=== PATIENT | female | born 1950 | race Caucasian/White ===

== ENCOUNTER 2019-04-21 19:25 | Emergency (ER) | payer MEDICARE ==
[~2019-04-21 19:25] MED LIST changes: -CITA-145 PO; -FLUC100T35 PO; -LUTE10TA3 PO; -PIOG45TA65 PO; -SULF1TAB24 PO
[2019-04-21] MEDS ORDERED: PIOG45TA65 PO (19:37)
[2019-04-21] MEDS ORDERED: CITA-145 PO (19:37)
--- NOTE | 2019-04-21 19:43 | ER Report ---
History and Physical Time Seen By MD: 19:34 Hx. of Stated Complaint: PT REPORTS NO APPETITE SINCE NOVEMBER. PT REPORT VOMITING. PT REPORT RASH OVER LOWER BODY. HPI/ROS CHIEF COMPLAINT: Heartburn and no appetite HISTORY OF PRESENT ILLNESS: This is a 68-year-old female, morbidly obese presents to the emergency department via EMS for epigastric pain and no appetite. Patient states that over the last month she has had no appetite, she is not eating, she states "nothing tastes good", is also had minimal fluid intake, she also states that over the last 7-10 days she's had severe epigastric pain. She also has a yeast infection in the groin, under the pannus and underneath both of her breasts. She has seen her primary care provider within the last month, they noted that her protein was low, no medication changes within the last one to 2 months. No fevers or chills. No nausea or vomiting. No dysuria. She denies increased shortness of breath. No back pain or headaches. REVIEW OF SYSTEMS: Constitutional: No fever, no chills. Eyes: No discharge. ENT: No sore throat. Cardiovascular: As above. Respiratory: No cough, no shortness of breath. Gastrointestinal: As above. Genitourinary: No hematuria. Musculoskeletal: No back pain. Skin: As above. Neurological: No headache. Allergies: Coded Allergies: Tetanus Vaccines and Toxoid (Verified Allergy, Unknown, SWELLED UP, 04/21/19) Home Meds Active Scripts Fluconazole (DIFLUCAN) 100 Mg Tablet, 200 MG PO QDAY, #2 TAB 0 Refills Prov:JOSE ROCHE SWITCH REPAIRER- 04/22/19 Reported Medications Citalopram Hydrobromide (CITALOPRAM HBR) 20 Mg Tablet, 20 MG PO QDAY, #5 TAB 04/21/19 Pioglitazone Hcl (PIOGLITAZONE HCL) 45 Mg Tablet, 45 MG PO QDAY 04/21/19 Discontinued Reported Medications [Herbal] No Conflict Check, 500 TAB PO QDAY 11/26/15 Metformin Hcl (METFORMIN HCL) 1,000 Mg Tablet, 1 TAB PO BID, TAB 11/26/15 Discontinued Scripts Oxycodone Hcl/Acetaminophen (PERCOCET 5-325 MG TABLET) 1 Each Tablet, 1 EACH PO Q4-6H PRN for PAIN, #20 TAB Prov:AMY DELANEYP 11/26/15 Past Medical/Surgical History The patient has a past medical and surgical history of morbidly obese, acid reflux, type II diabetes, appendectomy, cholecystectomy, hysterectomy, left shoulder surgery. Reviewed Nurses Notes: Yes Hx Smoking: No Smoking Status: Former Smoker Exposure to Second Hand Smoke?: No Hx Substance Use Disorder: No Constitutional Vital Sign - Last 24 Hours 04/21/19 04/21/19 04/21/19 04/21/19 19:25 19:30 19:31 19:40 Temp 98.7 Pulse 71 65 Resp 20 B/P (MAP) 119/70 (86) 119/57 (77) 119/70 Pulse Ox 73 93 O2 Delivery Room Air 04/21/19 04/21/19 04/21/19 04/21/19 19:55 20:00 20:10 20:25 Pulse 67 71 67 B/P (MAP) 135/59 (84) Pulse Ox 86 78 82 04/21/19 04/21/19 04/21/19 04/21/19 20:30 20:40 20:45 21:00 Pulse 64 68 70 B/P (MAP) 116/63 (80) 111/60 (77) Pulse Ox 94 96 84 04/21/19 04/21/19 04/21/19 04/21/19 21:05 21:20 21:25 23:10 Pulse 71 70 71 71 Pulse Ox 90 89 89 79 04/21/19 04/21/19 04/21/19 23:20 23:35 23:50 Pulse 71 76 72 Pulse Ox 95 92 89 Physical Exam General Appearance: The patient is alert, has no immediate need for airway protection and no signs of toxicity, the patient is anxious. Eyes: Pupils equal and round no pallor or injection. ENT, Mouth: Mucous membranes are very dry, geographic tongue. Respiratory: There are no retractions, lungs are clear to auscultation. Cardiovascular: Regular rate and rhythm. Very faint systolic murmur, no clicks or rubs. Gastrointestinal: Morbidly obese abdomen, soft, mild tenderness to the epigastrium, no masses, hypoactive bowel sounds in all quadrants. Neurological: Alert and oriented 4. Moving all extremities. Following all commands. No focal neurodeficits. Skin: One plus pitting edema to the lower extremities bilaterally, patient normally has significant edema to the lower extremities, excoriation and a fungal infection noted underneath the lateral breasts and in the groin bilaterally, underneath the patient's pannus. No ulcerations. Musculoskeletal: Neck is supple non tender. Extremities are nontender, normal range of motion. DIFFERENTIAL DIAGNOSIS: After history and physical exam differential diagnosis was considered for myocardial infarction, bowel obstruction, ulcer, pulmonary embolus, failure to thrive, anorexia. Medical Decision Making Data Points Result Diagram: 04/21/19202704/21/19 0000 Laboratory Hematology Test 04/21/19 20:28 White Blood Count 4.9 k/uL (4.5-11.0) Red Blood Count 7.20 M/uL (4.17-5.56) H Hemoglobin 16.3 g/dL (12.0-16.0) H Hematocrit 53.3 % (34.0-47.0) H Mean Corpuscular Volume 74.0 fL (80.0-96.0) L Mean Corpuscular Hemoglobin 22.7 pg (26.0-33.0) L Mean Corpuscular Hemoglobin Concent 30.7 g/dL (32.0-36.0) L Red Cell Distribution Width 23.5 % (11.5-14.5) H Platelet Count 171 K/uL (150-450) Mean Platelet Volume 9.0 fL (7.2-11.1) Neutrophils (%) (Auto) 76.7 % (39.4-72.5) H Lymphocytes (%) (Auto) 13.4 % (17.6-49.6) L Monocytes (%) (Auto) 8.0 % (4.1-12.4) Eosinophils (%) (Auto) 0.8 % (0.4-6.7) Basophils (%) (Auto) 1.1 % (0.3-1.4) Nucleated RBC Relative Count (auto) 0.7 /100WBC Neutrophils # (Auto) 3.8 K/uL (2.0-7.4) Lymphocytes # (Auto) 0.7 K/uL (1.3-3.6) L Monocytes # (Auto) 0.4 K/uL (0.3-1.0) Eosinophils # (Auto) 0.0 K/uL (0.0-0.5) Basophils # (Auto) 0.1 K/uL (0.0-0.1) Nucleated RBC Absolute Count (auto) 0.04 K/uL Peripheral Blood Smear Yes Y/N Chemistry Test 04/21/19 00:00 04/21/19 20:28 Sodium Level 138 mmol/L (137-145) Potassium Level 4.1 mmol/L (3.5-5.0) Chloride Level 100 mmol/L (98-107) Carbon Dioxide Level 31 mmol/L (22-31) Blood Urea Nitrogen 22 mg/dl (7-18) Creatinine 0.80 mg/dl (0.52-1.04) Glomerular Filtration Rate Calc > 60.0 Random Glucose 124 mg/dl (75-110) Calcium Level 8.9 mg/dl (8.4-10.2) Total Bilirubin 2.6 mg/dl (0.2-1.3) Aspartate Amino Transf (AST/SGOT) 29 U/L (0-35) Alanine Aminotransferase (ALT/SGPT) 31 U/L (0-56) Alkaline Phosphatase 65 U/L (0-126) Troponin I 0.016 ng/ml Total Protein 7.0 g/dl (6.3-8.2) Albumin 3.5 g/dl (3.5-5.0) B-Type Natriuretic Peptide 285 pg/ml (0-100) Urinalysis Test 04/21/19 21:00 Urine Color [place] Urine Clarity Slightly-cloudy Urine pH 5.0 pH (4.8-9.5) Urine Specific [place] 1.025 Urine Protein Negative mg/dL (NEGATIVE) Urine Glucose (UA) Negative mg/dL (NEGATIVE) Urine Ketones Trace mg/dL (NEGATIVE) Urine Blood Small (NEGATIVE) Urine Nitrite Positive (NEGATIVE) Urine Bilirubin Negative (NEGATIVE) Urine Urobilinogen 4.0 mg/dL (0.2-1.9) Urine Leukocyte Esterase Negative (NEGATIVE) Urine RBC 1 /HPF (0-2/HPF) Urine WBC 7 /HPF (0-5/HPF) Urine Squamous Epithelial Cells Many /LPF (NONE-FEW) Urine Bacteria Many /HPF (NONE-FEW) Urine Hyaline Casts Few /LPF (NONE-FEW) Urine Mucus Few /HPF (NONE-FEW) Microbiology Microbiology Date/Time Source Procedure Growth Status 04/21/19 21:00 Del Valle Catheter Urine Urine Culture - Final Escherichia Coli Complete EKG/Imaging EKG Interpretation 12 lead EKG: Time of EKG 2001. Rhythm: Sinus rhythm with occasional PACs, ventricular rate 70 bpm. [place]: normal QRS: normal ST segments: No ST depression or elevation identified, inverted T waves in V1 through V6. No previous EKGs for comparison. Imaging FACILITY: [facility] [place] PATIENT NAME: Tennille Zaragoza : 1950 MR: [id number] V: [id number] EXAM DATE: ORDERING PHYSICIAN: JOSE ROCHE TECHNOLOGIST: Location: [facility] [place] Patient: Tennille Zaragoza : 1950 Visit/Account:[id number] Date of Sevice: 04/21/2019 COMPUTED TOMOGRAPHY CHEST, ABDOMEN AND PELVIS WITH INTRAVENOUS CONTRAST DATE OF EXAM: 04/21/2019 7:58 PM. INDICATION: Not eating x1 month, severe abdominal and epigastric pain. COMPARISON: None. TECHNIQUE: Contrast enhanced chest, abdomen and pelvis CT performed during the injection of 75 ml of Isovue 370. Sagittal and coronal reconstructions were performed. One of the following dose optimization techniques was utilized in the performance of this exam: Automated exposure control; adjustment of the mA and/or kV according to the patient's size; or use of an iterative reconstruct ion technique. Specific details can be referenced in the facility's radiology CT exam operational policy. FINDINGS: CHEST: Thyroid: Normal. Thoracic inlet: No adenopathy. Heart and great vessels: Mild cardiomegaly. Coronary artery and aortic annulus calcifications. Nonaneurysmal aorta with mild atherosclerotic calcification. Central pulmonary arteries are enlarged. Mediastinum and margareth: Nonacute, no adenopathy. Lungs and pleura: Mild atelectasis. No suspicious consolidation. Breast and axilla: No adenopathy. ABDOMEN AND PELVIS: Liver and hepatic vasculature: No focal lesion. Gallbladder and bile ducts: Cholecystectomy. Spleen: Normal. Small splenule inferiorly. Pancreas: Largely fatty replaced. Adrenals: Normal. Kidneys, ureters and bladder: 1.8 cm fat density lesion in the mid portion of the left kidney likely represents an angiomyolipoma. Urinary bladder is decompressed by a Del Valle catheter. No hydronephrosis or hydroureter. Retroperitoneum and aorta: Nonaneurysmal aorta with [id number]-nv-mtmdexmr atherosclerosis. Distended inferior vena cava. No adenopathy. GI tract, mesentery and peritoneum: No evidence of obstruction. No pneumatosis or pneumoperitoneum. Small volume of free fluid in the pelvis. Probable appendectomy. Severe sigmoid diverticulosis. Uterus and adnexa: Hysterectomy. Bones and soft tissues: Moderate diffuse body wall edema. Prominent venous collaterals in the body wall. IMPRESSION: 1. Mild cardiomegaly with enlargement of the central pulmonary arteries suggestive of pulmonary arterial hypertension. 2. Moderate diffuse body wall edema and small volume of free fluid in the pelvis may be related to overall fluid status/3rd spacing. 3. Severe sigmoid diverticulosis. 4. Appendectomy, hysterectomy and cholecystectomy. Report Dictated By: Joon Kirkpatrick MD at 04/21/2019 11:16 PM Report E-Signed By: Joon Kirkpatrick MD at 04/21/2019 11:32 PM [id number] ED Course/Re-evaluation Clinical Indication for ER IV: Hydration, IV Access ED Course The patient was admitted to room. Her symptoms were obtained. Differential diagnoses were considered. An IV was started. A CBC, CMP were obtained. A catheter UA was collected. A CT of the chest abdomen pelvis was obtained. EKG showing sinus rhythm, with occasional PACs.CC showing RBCs 7.0 H&H 16.353, MCV 74, MCH 22.7, MCHC 30.7, RDW 23.5, total bilirubin 2.6, negative troponin, BNP 285, UA showing concentrated urine at 1.025, trace ketones, small blood, positive nitrites, woylv-jigv-fre bilirubin, suspicious for possible yeast infection, patient was given a dose of fluconazole in the emergency department, I a discussion was sent to the patient's mail-order pharmacy for fluconazole as well for re-dosing in [address] of the chest and pelvis showing mild cardiomegaly, concerning for pulmonary hypertension, small volume of free fluid in the pelvis, 3rd spacing, diverticulosis, atelectasis. I did review the results with the patient, I did explain to them that with the current exam, there is noted minimal criteria this point, she has a known history of anemia, her acid reflux complaints initially are improved with a GI cocktail. Discussed these with the patient, I did recommend that she follows up with Dr. Estrella, they can discuss home health assistance as she is morbidly obese and will required assistance to get around the house, her is unable to help with these duties due to back injuries, we also provided some barrier cream to the patient's excoriated areas in the groin, nystatin powder to the pannus and the underside of the breasts. We did assist her with administration of medications, and Preet the patient and her have no appropriately apply the medications. She was given 200 mg fluconazole, repeat 200 mg fluconazole in 5 days, the patient and her both expressed understanding, patient was transported home via EMS. They had no other questions or concerns at this time and were discharged home. Decision to Disposition Date: Apr 22, 2019 Decision to Disposition Time: 00:06 Depart Departure Latest Vital Signs Vital Signs Date Time Temp Pulse Resp B/P (MAP) Pulse Ox O2 Delivery O2 Flow Rate FiO2 04/21/19 23:50 72 89 04/21/19 21:00 111/60 (77) 04/21/19 19:31 98.7 20 Room Air Impression: Primary Impression: Anemia Additional Impressions: Acid reflux Cardiomegaly Atelectasis Diverticulosis Condition: Improved Disposition: HOME OR SELF-CARE Referrals: EDD ESTRELLA DO [place] Fluconazole (DIFLUCAN) 100 Mg Tablet 200 MG PO QDAY, #2 TAB 0 Refills Prov: JOSE ROCHE Doug SWITCH REPAIRER-BC 04/22/19 Patient Instructions: Anemia (ED), Atelectasis (ED), Gastroesophageal Reflux Disease (ED) Additional Instructions: Please contact Dr. Jean office tomorrow for a home health evaluation. Use the nystatin powder twice a day. Use the barrier cream as needed. You may need a repeat urine exam by Dr. Estrella. Take the last dose of Fluconozole in 6 days for possible yeast infection in the urine, this was sent to your mail order pharmacy. Keep the areas under the breasts, abdomen, legs and groin as dry as possible, this will help with the yeast infection. You lab work shows continued anemia, you will need to review this with Dr. Estrella for future plans and reevaluation. Cough and deep breath every 1-2 hours while awake, this will help your atelectasis. You also have severe diverticulosis without diverticulitis, you may need to have a colonoscopy too, please discuss with Dr. Estrella. Drink plenty of water. Work on your oral intake, high protein meals or shakes may help. Return to the ED for any other concerns or worsening symptoms. Problem Qualifiers Primary Impression: Anemia Anemia type: unspecified type Qualified Codes: D64.9 - Anemia, unspecified Additional Impressions: Acid reflux Esophagitis presence: esophagitis presence not specified Qualified Codes: K21.9 - Gastro-esophageal reflux disease without esophagitis JOSE ROCHEP- Apr 21, 2019 19:43
[2019-04-21] MEDS ORDERED: NS(*) 0.9% 1000 ML BAG 1,000 ML IV ONE (20:00)
[2019-04-21] MEDS ORDERED: LIDOCAINE 2% VISC SLN 15ML UDC PO ONE (20:00)
[2019-04-21] MEDS ORDERED: MAG HYD/AL HYD/SIMETH 30ML UDC PO ONE (20:00)
--- NOTE | 2019-04-21 20:22 | EKG ---
FACILITY: [facility] - [place] PATIENT NAME: WOODY RICHARDSON : [id number] MR: [id number] V: [id number] EXAM DATE: ORDERING PHYSICIAN: JOSE ROCHE TECHNOLOGIST: ALVARO Test Reason : epigastric pain Blood Pressure : / mmHG Vent. Rate : 070 BPM Atrial Rate : 070 BPM P-R Int : 152 ms QRS Dur : 094 ms QT Int : 428 ms P-R-T Axes : 072 084 -45 degrees QTc Int : 462 ms Sinus rhythm with premature atrial complexes Non- specific T changes throughout. Abnormal ECG No previous ECGs available Confirmed by PARI RAMIREZ ([id number]) on 04/21/2019 8:55:44 PM Referred By: Confirmed By:PARI RAMIREZ
[2019-04-21 21:00] VITALS: BP 111/60
[2019-04-21] MEDS ORDERED: IOPAMIDOL 76% 100 ML INFUS BTL 100 ML ONE (21:27)
[2019-04-21 22:20] LABS: PLATELET COUNT, AUTOMATED 171 K/uL (150-450)
[2019-04-21] MEDS ORDERED: NYSTATIN 100,000 U/GM PWD 15GM TP SCH (23:25)
[2019-04-21] MEDS ORDERED: FLUCONAZOLE 100 MG TAB PO ONE (23:25)
--- NOTE | 2019-04-21 23:41 | RADIOLOGY IMAGING REPORT ---
FACILITY: [facility] [place] PATIENT NAME: Tennille Zaragoza : 1950 MR: [id number] V: [id number] EXAM DATE: ORDERING PHYSICIAN: JOSE ROCHE TECHNOLOGIST: Location: [facility] - [place], [place] Patient: Tennille Zaragoza : 1950 Visit/Account:[id number] Date of Sevice: 04/21/2019 COMPUTED TOMOGRAPHY CHEST, ABDOMEN AND PELVIS WITH INTRAVENOUS CONTRAST DATE OF EXAM: 04/21/2019 7:58 PM. INDICATION: Not eating x1 month, severe abdominal and epigastric pain. COMPARISON: None. TECHNIQUE: Contrast enhanced chest, abdomen and pelvis CT performed during the injection of 75 ml of Isovue 370. Sagittal and coronal reconstructions were performed. One of the following dose optimiza tion techniques was utilized in the performance of this exam: Automated exposure control; adjustment of the mA and/or kV according to the patient's size; or use of an iterative reconstruction technique . Specific details can be referenced in the facility's radiology CT exam operational policy. FINDINGS: CHEST: Thyroid: Normal. Thoracic inlet: No adenopathy. Heart and great vessels: Mild cardiomegaly. Coronary artery and aortic annulus calcifications. Non aneurysmal aorta with mild atherosclerotic calcification. Central pulmonary arteries are enlarged. Mediastinum and margareth: Nonacute, no adenopathy. Lungs and pleura: Mild atelectasis. No suspicious consolidation. Breast and axilla: No adenopathy. ABDOMEN AND PELVIS: Liver and hepatic vasculature: No focal lesion. Gallbladder and bile ducts: Cholecystectomy. Spleen: Normal. Small splenule inferiorly. Pancreas: Largely fatty replaced. Adrenals: Normal. Kidneys, ureters and bladder: 1.8 cm fat density lesion in the mid portion of the left kidney likely represents an angiomyolipoma. Urinary bladder is decompressed by a Del Valle catheter. No hydronephros is or hydroureter. Retroperitoneum and aorta: Nonaneurysmal aorta with ypgh-nu-fonmtnvb atherosclerosis. Distended inf erior vena cava. No adenopathy. GI tract, mesentery and peritoneum: No evidence of obstruction. No pneumatosis or pneumoperitoneum. Small volume of free fluid in the pelvis. Probable appendectomy. Severe sigmoid diverticulosis. Uterus and adnexa: Hysterectomy. Bones and soft tissues: Moderate diffuse body wall edema. Prominent venous collaterals in the body wall. IMPRESSION: 1. Mild cardiomegaly with enlargement of the central pulmonary arteries suggestive of pulmonary isiah rial hypertension. 2. Moderate diffuse body wall edema and small volume of free fluid in the pelvis may be related to o verall fluid status/3rd spacing. 3. Severe sigmoid diverticulosis. 4. Appendectomy, hysterectomy and cholecystectomy. Report Dictated By: Joon Kirkpatrick MD at 04/21/2019 11:16 PM Report E-Signed By: Joon Kirkpatrick MD at 04/21/2019 11:32 PM [id number]
[2019-04-22] MEDS ORDERED: FLUC100T35 PO (00:03)
== END 2019-04-22 00:50 | disposition home or self-care (01) ==
LOC: ER 19:42
DX: D64.9 Anemia, unspecified (principal); K21.9 Gastro-esophageal reflux disease without esophagitis; I51.7 Cardiomegaly; J98.11 Atelectasis; K57.90 Diverticulosis of intestine, part unspecified, without perforation or abscess without bleeding
CPT/HCPCS: 71260; 74177; 81001; 83880; 84484; 85025; 87077; 87088; 87186; 93005; 96360; 99284; A4353; A9270; J7030; Q9967; 82040; 82247; 82310; 82374; 82435; 82565; 82947; 84075; 84132; 84155; 84295; 84450; 84460; 84520

== ENCOUNTER → 2019-04-21 | Outpatient (CLI) | payer MEDICARE ==
[~2019-04-21] MED LIST: CITA-145 PO; FLUC100T35 PO; HERBAL PO; LUTE10TA3 PO; METF-452 PO; OXYC-865 PO; PIOG45TA65 PO; SULF1TAB24 PO
== END ==
LOC: AMB 19:01
PROVIDERS: ATTEND Nurse Practitioner
DX: R53.1 Weakness (principal); R09.02 Hypoxemia; R11.0 Nausea
CPT/HCPCS: A0425; A0429

== ENCOUNTER → 2019-04-22 | Outpatient (CLI) | payer MEDICARE ==
[~2019-04-22] MED LIST changes: +CITA-145 PO; +FLUC100T35 PO; +LUTE10TA3 PO; +PIOG45TA65 PO; +SULF1TAB24 PO
== END ==
LOC: AMB 00:44
PROVIDERS: ATTEND Nurse Practitioner
DX: R09.02 Hypoxemia (principal); R53.1 Weakness
CPT/HCPCS: A0425; A0428

== ENCOUNTER 2019-04-29 05:08 | Inpatient (IN) | payer MEDICARE ==
[~2019-04-29] VITALS: Ht 170.2 cm; Wt 174.2 kg
[2019-04-29] VITALS (34 sets, daily range): BP systolic 103–148; BP diastolic 46–103
--- NOTE | 2019-04-29 04:56 | ER Report ---
History and Physical Time Seen By MD: 04:52 HPI/ROS CHIEF COMPLAINT: Vaginal bleeding HISTORY OF PRESENT ILLNESS: 60-year-old female brought in by EMS from home with acute vaginal bleeding. Patient was seen here in the ER on 04/21/19. She was diagnosed with severe yeast infection involving her groin. He was placed on fluconazole 150 mg per day 6 days. Patient is status post hysterectomy. Patient's urine culture grew out 100,000 Escherichia coli sensitive to everything. Apparently she was prescribed antibiotics by her primary care Dr Estrella. EMS expresses concerns that her home is ill equipped for her to live there. They suggest social work instructor get involved. Patient was getting up to have a bowel movement when all of this dark blood poured out.. EMS reports a large pool on the floor approximately 20 inches in diameter. He also reports significant blood in the bowl. EMS also reports hypotension for their initial blood pressure. REVIEW OF SYSTEMS: Respiratory: No cough, no dyspnea. Cardiovascular: No chest pain, no palpitations. Gastrointestinal: No vomiting, no abdominal pain. Musculoskeletal: No back pain. Allergies: Coded Allergies: Tetanus Vaccines and Toxoid (Verified Allergy, Unknown, SWELLED UP, 04/29/19) Home Meds Active Scripts Fluconazole (DIFLUCAN) 100 Mg Tablet, 200 MG PO QDAY, #2 TAB 0 Refills Prov:JOSE ROCHE Doug OUTREACH DIRECTOR-BC 04/22/19 Reported Medications Citalopram Hydrobromide (CITALOPRAM HBR) 20 Mg Tablet, 20 MG PO QDAY, #5 TAB 04/21/19 Pioglitazone Hcl (PIOGLITAZONE HCL) 45 Mg Tablet, 45 MG PO QDAY 04/21/19 Past Medical/Surgical History The patient has a past medical and surgical history of morbidly obese, acid reflux, type II diabetes, appendectomy, cholecystectomy, hysterectomy, left shoulder surgery. Reviewed Nurses Notes: Yes Old Medical Records Reviewed: Yes Hx Smoking: No Smoking Status: Former Smoker Exposure to Second Hand Smoke?: No Hx Substance Use Disorder: No Constitutional Vital Sign - Last 24 Hours 04/29/19 04/29/19 04/29/19 04/29/19 05:06 05:13 05:18 05:28 Temp 97.9 Pulse 80 77 85 79 Resp 18 B/P (MAP) 95/56 Pulse Ox 99 98 96 98 O2 Delivery Non-Rebreather 04/29/19 04/29/19 04/29/19 04/29/19 05:29 05:30 05:33 05:38 Pulse 82 ??? B/P (MAP) 98/42 (60) 78/50 (59) Pulse Ox 98 90 04/29/19 04/29/19 04/29/19 04/29/19 05:39 05:43 05:48 05:53 Pulse 83 77 80 B/P (MAP) 107/57 (74) Pulse Ox 92 93 92 04/29/19 04/29/19 04/29/19 04/29/19 05:58 06:00 06:03 06:08 Pulse 79 78 81 B/P (MAP) 106/66 (79) Pulse Ox 92 90 91 04/29/19 04/29/19 04/29/19 06:13 06:18 06:19 Pulse 78 80 B/P (MAP) 97/54 (68) Pulse Ox 92 91 Physical Exam General Appearance: The patient is alert, has no immediate need for airway protection and no current signs of toxicity. Vital signs stable, borderline hypotension, HEENT: Pupils equal and round no injection. TMs normal, oropharynx without redness or exudate Respiratory: Chest is non tender, lungs are clear to auscultation. Cardiac: regular rate and rhythm Gastrointestinal: Abdomen is soft and non tender, no masses, bowel sounds normal. Genital: Patient's legs were raised by staff members. She has no blood coming from her vagina. There is a hemorrhoid at the rectum that is likely the source of her bleeding. Patient also could have hemorrhagic cystitis. Musculoskeletal: Neck: Neck is supple and non tender. Extremities have full range of motion and are non tender. Skin: No rashes or lesions. DIFFERENTIAL DIAGNOSIS: After history and physical exam differential diagnosis was considered for lower GI bleeding including but not limited to diver ticulosis, tumor, AVM, hemorrhoid and anal fissure. Medical Decision Making Data Points Result Diagram: 04/29/19 0614 04/29/19 0455 Laboratory Hematology Test 04/29/19 04:55 04/29/19 06:14 White Blood Count 5.0 k/uL (4.5-11.0) Red Blood Count 6.50 M/uL (4.17-5.56) H Mean Corpuscular Volume 74.8 fL (80.0-96.0) L Mean Corpuscular Hemoglobin 23.0 pg (26.0-33.0) L Mean Corpuscular Hemoglobin Concent 30.7 g/dL (32.0-36.0) L Red Cell Distribution Width 24.9 % (11.5-14.5) H Platelet Count 183 K/uL (150-450) Mean Platelet Volume 9.0 fL (7.2-11.1) Neutrophils (%) (Auto) 54.5 % (39.4-72.5) Lymphocytes (%) (Auto) 29.6 % (17.6-49.6) Monocytes (%) (Auto) 10.1 % (4.1-12.4) Eosinophils (%) (Auto) 4.5 % (0.4-6.7) Basophils (%) (Auto) 1.3 % (0.3-1.4) Nucleated RBC Relative Count (auto) 0.1 /100WBC Neutrophils # (Auto) 2.7 K/uL (2.0-7.4) Lymphocytes # (Auto) 1.5 K/uL (1.3-3.6) Monocytes # (Auto) 0.5 K/uL (0.3-1.0) Eosinophils # (Auto) 0.2 K/uL (0.0-0.5) Basophils # (Auto) 0.1 K/uL (0.0-0.1) Nucleated RBC Absolute Count (auto) 0.01 K/uL Peripheral Blood Smear Yes Y/N Hemoglobin 12.9 g/dL (12.0-16.0) Hematocrit 42.0 % (34.0-47.0) Chemistry Test 04/29/19 04:55 04/29/19 06:14 Sodium Level 134 mmol/L (137-145) Potassium Level 4.3 mmol/L (3.5-5.0) Chloride Level 98 mmol/L (98-107) Carbon Dioxide Level 32 mmol/L (22-31) Blood Urea Nitrogen 11 mg/dl (7-18) Creatinine 0.60 mg/dl (0.52-1.04) Glomerular Filtration Rate Calc > 60.0 Random Glucose 97 mg/dl (75-110) Calcium Level 8.4 mg/dl (8.4-10.2) Total Bilirubin 1.9 mg/dl (0.2-1.3) Aspartate Amino Transf (AST/SGOT) 18 U/L (0-35) Alanine Aminotransferase (ALT/SGPT) 28 U/L (0-56) Alkaline Phosphatase 53 U/L (0-126) Total Protein 5.7 g/dl (6.3-8.2) Albumin 2.8 g/dl (3.5-5.0) Amylase Level 35 U/L (0-110) Lipase 20 U/L (23-300) Lactate 1.4 mmol/L (0.7-2.1) B-Type Natriuretic Peptide 341 pg/ml (0-100) Coagulation Test 04/29/19 04:55 Prothrombin Time 15.7 seconds (12.0-14.4) Prothromb Time International Ratio 1.24 Activated Partial Thromboplast Time 32 seconds (23-35) EKG/Imaging Imaging X-ray: Single view portable chest x-ray was obtained. I viewed the images marky [email or web address] on the PACS system. My interpretation of the images is:? 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 The radiologist interpretation had no clinically significant variation from this interpretation. ED Course/Re-evaluation Clinical Indication for ER IV: Hydration, IV Access ED Course Patient was admitted to an examination room. H&P was done. The differential diagnoses was considered. Patient with morbid obesity. She thinks she has vaginal bleeding. Patient's legs were lifted and spread by staff members. A quick vaginal bimanual exam was performed. There is no blood in the vaginal vault. There is no staining around the vagina. Os examination of the rectum reveals a friable hemorrhoid and blood coming from the rectum. Patient's treated with IV fluid hydration. She is hypotensive by EMS. His numbers that her 1st blood pressure here is 95/69. She was also hypoxic. She was started on home O2 by Dr. Aldrich which was delivered yesterday. Patient was prescribed antibiotic for a urinary culture that grew out 100,000 Escherichia coli, pansensitive. 04/29/2019 6:04:39 am patient had a moderate bowel movement of bright red clots. A lactate and a type and cross for 2 units was added to blood work. A 2nd IV was started. 04/29/2019 6:43:53 am patient had another large BM of dark blood and clots 04/29/2019 6:53:03 am case discussed with Dr. Ranjan Rodriguez, general surgery on- call, who accepts patient for admission with lower GI bleed Decision to Disposition Date: Apr 29, 2019 Decision to Disposition Time: 05:58 Depart Departure Latest Vital Signs Vital Signs Date Time Temp Pulse Resp B/P (MAP) Pulse Ox O2 Delivery O2 Flow Rate FiO2 04/29/19 06:19 97/54 (68) 04/29/19 06:18 80 91 04/29/19 05:06 97.9 18 Non-Rebreather Impression: Primary Impression: Rectal bleeding Additional Impressions: Hypotension Diverticulitis Condition: Improved Disposition: Admitted from ER Referrals: EDD ESTRELLA DO (PCP) Problem Qualifiers Additional Impressions: Hypotension Hypotension type: unspecified hypotension type Qualified Codes: I95.9 - Hypotension, unspecified KRISTA LAURENT DO Apr 29, 2019 04:56
[~2019-04-29 05:08] MED LIST changes: -LUTE10TA3 PO; -SULF1TAB24 PO
[2019-04-29 05:35] LABS: PLATELET COUNT, AUTOMATED 183 K/uL (150-450)
[2019-04-29 05:43] LABS: INR 1.24
--- NOTE | 2019-04-29 06:02 | RADIOLOGY IMAGING REPORT ---
[place] [facility] [place] NAME: Tennille Zaragoza : 1950 MR: [id number] V: [id number] EXAM DATE: ORDERING PHYSICIAN: KRISTA LAURENT TECHNOLOGIST: Location: [facility] - [place] Patient: Tennille Zaragoza : 1950 Visit/Account:[id number] Date of Sevice: 04/29/2019 CHEST SINGLE AP 04/29/2019 05:26 hours. HISTORY: Dyspnea. Hypoxia. COMPARISON: CT chest, abdomen, and pelvis 12/20/2018. No prior chest x-ray TECHNIQUE: Portable semiupright AP view of the chest. FINDINGS: TUBES/LINES/HARDWARE: None. PULMONARY/PLEURA: There is a small left pleural effusion. There is adjacent left basilar opacity. The re is mild right basilar opacity. No pneumothorax. CARDIOMEDIASTINAL: The cardiac silhouette is enlarged, stable. The mediastinal silhouette is within n ormal limits. BONES/SOFT TISSUES: No acute osseous abnormality. The visible abdomen is normal. IMPRESSION: 1. Small left pleural effusion. 2. There are bibasilar opacities. Right is likely atelectasis. Left may be atelectasis or pneumonia. 3. Cardiomegaly, unchanged. Report Dictated By: Delilah De La Cruz at 04/29/2019 5:53 AM Report E-Signed By: Delilah De La Cruz at 04/29/2019 5:55 AM WSN:[id number]
[2019-04-29] MEDS ORDERED: NS(*) 0.9% 500 ML BAG 500 ML IV ONE (07:15)
--- NOTE | 2019-04-29 08:36 | RADIOLOGY IMAGING REPORT ---
FACILITY: [facility] PATIENT NAME: Tennille Zaragoza : 1950 MR: [id number] V: [id number] EXAM DATE: ORDERING PHYSICIAN: CHITRA MOREL TECHNOLOGIST: Location: [facility] - [place] Patient: Tennille Zaragoza : 1950 Visit/Account:[id number] Date of Sevice: 04/29/2019 CHEST SINGLE AP COMPARISONS: Single view chest dated April 29, 2019 ADDITIONAL PERTINENT HISTORY: Central line placement. FINDINGS: Life-support: Interval placement of a right internal jugular venous catheter with its tip in the mid SVC. Cardiomediastinal silhouette: Negative. Pulmonary vasculature: Atherosclerotic disease of the thoracic aortic arch. Lung epps: Continued dense opacity at the left lung base which could represent either atelectatic change or infiltrate. Mild right basilar atelectatic change. Pleural spaces: Small left-sided pleural effusion, stable from previous exam Osseous structures: Negative. Surrounding soft tissues: Negative. IMPRESSION: 1. Interval placement of a right internal jugular venous catheter with its tip in the mid SVC. 2. Continued rather dense opacity at the left lung base either representing atelectatic change versus infiltrate. 3. Persistent small left-sided pleural effusion. Report Dictated By: Emeterio Lemus MD at 04/29/2019 8:26 AM Report E-Signed By: Emeterio Lemus MD at 04/29/2019 8:28 AM WSN:[id number]
[2019-04-29] MEDS ORDERED: SUCCINYLCHOL CHL 100MG/5ML SYR IVP ONE (08:53)
[2019-04-29] MEDS ORDERED: PROPOFOL EMUL(*) 10MG/ML 20 ML 40 ML ONE (08:53)
--- NOTE | 2019-04-29 08:53 | Gen Surgery History & Physical ---
History of Present Illness Chief Complaint GI bleeding History of Present Illness 68-year-old female is brought in by EMS to the emergency room after having several bloody bowel movements. She woke up this morning with these bloody bowel movements. Initially it was thought to be vaginal bleeding but since then has been confirmed to be coming from her GI tract. No abdominal pain. She's never had GI bleeding before. She's not on any blood thinners. She denies any routine use of NSAIDs. She denies any steroid use. Her last colonoscopy was over 10 years ago. She reports that she is somewhat out of it because all of the activity going on here in her ER room and so she cannot provide much history and her was not here at the time of this history to provide any additional information. History Problems: (1) Cardiomegaly Status: Acute (2) Diverticulosis Status: Acute (3) Acid reflux Status: Acute (4) Morbid obesity with BMI of 50.0-59.9, adult Status: Chronic (5) Diabetes Status: Chronic Home Meds Active Scripts Fluconazole (DIFLUCAN) 100 Mg Tablet, 200 MG PO QDAY, #2 TAB 0 Refills Prov:TRAEMARIBELLBERNADINEAUGUSTJOSE Doug SUPERVISOR COFFEE-BC 04/22/19 Reported Medications Citalopram Hydrobromide (CITALOPRAM HBR) 20 Mg Tablet, 20 MG PO QDAY, #5 TAB 04/21/19 Pioglitazone Hcl (PIOGLITAZONE HCL) 45 Mg Tablet, 45 MG PO QDAY 04/21/19 Allergies: Coded Allergies: Tetanus Vaccines and Toxoid (Verified Allergy, Unknown, SWELLED UP, 04/29/19) Review of Systems All Systems Reviewed/Normal: Yes, Except as Noted Gastrointestinal: Melena Exam General Appearance: Alert, Awake, No Acute Distress, Afebrile Neuro: No Gross deficits Eyes: PERRLA GI: Abd Soft and Non-Tender (morbidly obese, very protuberant abdomen.) Extremities: Warm, Perfused Psych: Alert & Oriented X3, Appropriate Mood & Affect Medical Decision Making Data Points Result Diagram: 04/29/19 0614 04/29/19 0455 Assessment and Plan Problems: (1) Gastrointestinal hemorrhage Status: Acute Assessment & Plan: 04/29/19: This patient is actively bleeding. We'll take her emergently for EGD and colonoscopy to try to localize the source of the bleeding and try to control it if possible endoscopically. I've also consented her for emergency exploratory laparotomy if I'm unable to control the bleeding endosco pically and there is active bleeding found on endoscopy. I have explained the procedures to her in great detail as well as the degree of uncertainty now in terms of where the bleeding is coming from. I have explained that I may have to perform a colon resection and may even need to give her a colostomy. I have explained the procedures, risks, alternatives, and expected recovery as far as I can tell with the limited information I have at the moment to both her and her . Her risks are significantly increased by her degree of obesity, her BMI is around 50 and her weight is 400 pounds. This will increase her risk of heart attack, stroke, , pulmonary embolism especially since we can give her blood thinners and DVT prophylaxis at the moment, poor wound healing, etc. They seem to understand this discussion and seem agreeable with proceeding with this plan. She's gotten 2 units of packed red blood cells and is going to get 2 units of FFP, we will need to likely give her more packed red blood cells given the amount of bleeding she has exhibited during her ER course. We'll proceed emergently to surgery for attempted endoscopic control the bleeding, possible surgical control of the bleeding. Condition Unstable Time Spent: < 30 min Venous Thromboembolism VTE Risk Physician Assess for VTE Risk: Yes Patient's VTE Risk: High VTE Diagnostic Test 2 Days Prior to Admit: No Antithrombotics Is Pt On Any Antithrombotics?: No Prophylaxis Tx Contraindicated Pharmacological Contraindicati: Active Bleeding Problem Qualifiers (1) Gastrointestinal hemorrhage: GI bleed type/associated pathology: unspecified gastrointestinal hemorrhage type Qualified Codes: K92.2 - Gastrointestinal hemorrhage, unspecified VALERIE STARKEY MD Apr 29, 2019 08:53
[2019-04-29] MEDS ORDERED: ROCURONIUM BR 10 MG/ML 5 ML SY 5 ML ONE (09:03)
[2019-04-29] MEDS ORDERED: DEXAMETHASONE SOD PHOS 10MG/ML ONE (09:03)
[2019-04-29] MEDS ORDERED: ePHEDrine 25 MG/5 ML DISP.SYR IVP ONE (09:18)
[2019-04-29] MEDS ORDERED: PHENYLEPHRINE 10 MG/1 ML VIAL ONE (09:32)
[2019-04-29] MEDS ORDERED: EPINEPHrine HCL 1 MG/ML AMP ONE (09:45)
[2019-04-29] MEDS ORDERED: EPINEPHrine INJ 1 MG/10 ML SYR ONE (09:45)
[2019-04-29] MEDS ORDERED: NS(*) 0.9% 10 ML VIAL 10 ML ONE (09:45)
[2019-04-29] MEDS ORDERED: SUGAMMADEX SOD 500 MG/5 ML SDV ONE (10:02)
[2019-04-29] MEDS ORDERED: INSULIN HUM LISPRO 100 UN/ML 3 ML VIAL SUBQ PRN (10:55)
[2019-04-29] MEDS ORDERED: NALOXONE HCL 0.4 MG/ML VIAL IVP PRN (10:55)
[2019-04-29] MEDS ORDERED: FLUSH 10 ML SYR IVP PRN (10:55)
[2019-04-29] MEDS ORDERED: MORPHINE 2 MG/ML SYR IVP PRN (10:55)
[2019-04-29] MEDS ORDERED: ONDANSETRON 4 MG/2 ML VIAL IVP PRN (10:55)
[2019-04-29] MEDS ORDERED: PANTOPRAZOLE SOD(*)40 MG VIAL 80 MG in NS(*) 0.9% 100 ML BAG 100 ML IVPB ONE (11:15)
[2019-04-29] MEDS: NS(*) 0.9% 1000 ML BAG 1,000 ML IV PRN ×2 (11:49→11:50)
[2019-04-29] MEDS: PANTOPRAZOLE SOD(*)40 MG VIAL 80 MG in NS(*) 0.9% 100 ML BAG 100 ML IV SCH ×2 (11:58→20:20)
[2019-04-29] MEDS ORDERED: SULF1TAB24 PO (12:01)
--- NOTE | 2019-04-29 12:14 | Medical Nutrition Therapy ---
Nutrition Anthropometrics Weight (Pounds): 400 Weight (Calculated Kilograms): 181.437 Gerry Nutrition Score: Gerry Nutrition Risk Score: Dietary Referral Nutrition Risk Factors: Nutrition Risk Comment: Physical Findings Physical Appearance: BMI unknown (no height recorded) Skin Appearance Skin Appearance: Edema Edema Location Modifier: Edema Location: Type of Edema: Degree of Edema: Gastrointestinal Symptoms GI Symtoms: Tube Present: Bowel Sounds: Recent Bowel Pattern: Stool Characteristics: Nutritional Diagnosis Past Medical History: DM2, GERD Nutritional Acuity: 1-High Nutrition Diagnosis: Altered GI Function Nutrition Etiology: Physiological Causes Nutrition Problem/Etiology/Sym: GI bleed Energy Requirement: 2720 (20 kcal/kg) Fluid Requirement: 2720 Nutrition Intervention: Obtain Height and Weight Nutrition Monitoring & Eval Nutrition Goals: Eat 75-100% Meal Nutrition Follow-Up: Poor Intake Nutrition Monitoring: BGs, Surgery outcome, bowel function RD Patient Assessment Time: [address] Assessment Type: RD Assessment Patient Nutrition Acuity: 1-High Follow Up Date: May 02, 2019 Nutritional Comment: 04/29: Pt admit for GI bleed, exploratory lap. Pertinent PMH includes DM2, diverticulosis. Will monitor surgery outcome, BGs, intake, and bowel function and make recommendations depending on surgery outcome.RACQUEL SEGAL Apr 29, 2019 12:06
[2019-04-29] MEDS: NYSTATIN 100,000 U/GM PWD 15GM TP SCH ×2 (14:26→20:20)
[2019-04-30] VITALS (46 sets, daily range): BP systolic 94–131; BP diastolic 39–89
[2019-04-30] MEDS: NS(*) 0.9% 1000 ML BAG 1,000 ML IV PRN ×3 (02:42→21:49)
[2019-04-30 06:27] LABS: PLATELET COUNT, AUTOMATED 139 K/uL (150-450)
--- NOTE | 2019-04-30 06:41 | General Surgery Progress Note ---
Subjective Progress Notes Subjective No complaints this morning. Had a couple of BMs overnight, old blood, decreasing in volume. Physical Exam Vital Signs Date Time Temp Pulse Resp B/P (MAP) Pulse Ox O2 Delivery O2 Flow Rate FiO2 04/30/19 06:00 85 04/30/19 04:30 17 100/89 (93) 90 Oxy Mask 7.0 04/30/19 04:00 98.4 Intake and Output 04/30/19 07:04 Intake Total 2886 ml Output Total 2030 ml Balance 856 ml Intake Oral 0 ml IV Total 2154 ml Blood Product 732 ml Output Urine Total 2030 ml # Bowel Movements 2 General Appearance: Alert, Awake, No Acute Distress, Afebrile GI: Soft and Non-Tender Extremities: Warm, Perfused Result Diagram: 04/29/19 1752 04/30/19 0433 Assessment and Plan Problems: (1) Gastrointestinal hemorrhage Status: Acute Assessment & Plan: 04/29/19: This patient is actively bleeding. We'll take her emergently for EGD and colonoscopy to try to localize the source of the bleeding and try to control it if possible endoscopically. I've also consented her for e mergency exploratory laparotomy if I'm unable to control the bleeding endoscopically and there is active bleeding found on endoscopy. I have explained the procedures to her in great detail as well as the degree of uncertainty now in terms of where the bleeding is coming from. I have explained that I may have to perform a colon resection and may even need to give her a colostomy. I have explained the procedures, risks, alternatives, and expected recovery as far as I can tell with the limited information I have at the moment to both her and her . Her risks are significantly increased by her degree of obesity, her BMI is around 50 and her weight is 400 pounds. This will increase her risk of heart attack, stroke, , pulmonary embolism especially since we can give her blood thinners and DVT prophylaxis at the moment, poor wound healing, etc. They seem to understand this discussion and seem agreeable with proceeding with this plan. She's gotten 2 units of packed red blood cells and is going to get 2 units of FFP, we will need to likely give her more packed red blood cells given the amount of bleeding she has exhibited during her ER course. We'll proceed emergently to surgery for attempted endoscopic control the bleeding, possible surgical control of the bleeding. 04/30/19: Pt has large cratered duodenal ulcer that was bleeding and was controlled yesterday endoscopically with clip, epi, and erbe. Seems to be doing well. Had a couple of BMs overnight but decreasing in volume and I think due to residual blood in her GI tract. H/H stable yesterday, CBC pending still this morning. Will start clear diet. Start carafate. Continue PPI gtt. Hold off on any blood thinners. Avoid NSAIDS. Condition STable. Time Spent: < 30 min Exam Sepsis Risk: No Definite Risk Problem Qualifiers (1) Gastrointestinal hemorrhage: GI bleed type/associated pathology: unspecified gastrointestinal hemorrhage type Qualified Codes: K92.2 - Gastrointestinal hemorrhage, unspecified VALERIE STARKEY MD Apr 30, 2019 06:41
[2019-04-30] MEDS: PANTOPRAZOLE SOD(*)40 MG VIAL 80 MG in NS(*) 0.9% 100 ML BAG 100 ML IV SCH ×2 (06:52→16:47)
[2019-04-30] MEDS: NYSTATIN 100,000 U/GM PWD 15GM TP SCH ×2 (08:42→19:39)
[2019-04-30] MEDS: SUCRALFATE 1 GM TAB PO SCH ×3 (11:16→21:24)
--- NOTE | 2019-04-30 14:02 | NUR ---
Physical Therapy Impression PT/OT eval completed followed by treatment session. Pt was 2-3 person Mod assist for supine to sit at EOB and 2-3 person Max assist for sit to supine. Pt completed 2 transfers sit to stand with Mod assist x 2 and on second transfer, after rest break, she was able to side step to head of bed. Physical Therapy Goals 1. Pt to be min assist for supine to/from sit 2. Pt to be min assist for sit to/from stand 3. Pt to ambulate x 100' with least restrictive device 4. Pt to complete up/down stairs to access her home safely Patient's Goals
--- NOTE | 2019-04-30 16:06 | NUR ---
Occupational Therapy Impression Min A supine to sit with HOB raised. Max Ax2 for initial sit<>stand. Pt then completing sides steps to HOB with RW and Min Ax2. Max Ax3 sit<>supine, pt may have ability for more independence with sit<>supine. VSS throughout. SpO2 WNL on 10L via OxyMask. Recommendations pending progress. Occupational Therapy Goals Patient's Goal
[2019-04-30] MEDS: ALBUTEROL/IPRATROPIUM 3 ML NEB NEB PRN ×2 (18:14→22:27)
[2019-04-30] MEDS ORDERED: LUTE10TA3 PO (20:26)
[2019-05-01] VITALS (55 sets, daily range): BP systolic 46–141; BP diastolic 21–86
[2019-05-01] MEDS: PANTOPRAZOLE SOD(*)40 MG VIAL 80 MG in NS(*) 0.9% 100 ML BAG 100 ML IV SCH ×2 (03:27→12:40)
[2019-05-01] MEDS: SUCRALFATE 1 GM TAB PO SCH ×2 (05:57→12:38)
[2019-05-01 06:13] LABS: PLATELET COUNT, AUTOMATED 148 K/uL (150-450)
--- NOTE | 2019-05-01 07:30 | General Surgery Progress Note ---
Subjective Progress Notes Subjective No complaints this morning other than she feels weak. No further BMs since yesterday, no abdominal pain. Physical Exam Vital Signs Date Time Temp Pulse Resp B/P (MAP) Pulse Ox O2 Delivery O2 Flow Rate FiO2 05/01/19 06:30 129/68 (88) Oxy Mask 10.0 05/01/19 06:00 91 20 90 05/01/19 05:30 98.8 Intake and Output 05/01/19 07:04 Intake Total 3559 ml Output Total 940 ml Balance 2619 ml Intake Oral 980 ml IV Total 2579 ml Output Urine Total 940 ml # Bowel Movements 1 General Appearance: Alert, Awake, No Acute Distress, Afebrile GI: Soft and Non-Tender Extremities: Warm, Perfused Result Diagram: 05/01/1944105/01/19441 Assessment and Plan Problems: (1) Gastrointestinal hemorrhage Status: Acute Assessment & Plan: 04/29/19: This patient is actively bleeding. We'll take her emergently for EGD and colonoscopy to try to localize the source of the bleeding and try to control it if possible endoscopically. I've also consented her for emergency exploratory laparotomy if I'm unable to control the bleeding endoscopically and there is active bleeding found on endoscopy. I have explained the procedures to her in great detail as well as the degree of uncertainty now in terms of where the bleeding is coming from. I have explained that I may have to perform a colon resection and may even need to give her a colostomy. I have explained the procedures, risks, alternatives, and expected recovery as far as I can tell with the limited information I have at the moment to both her and her . Her risks are significantly increased by her degree of obesity, her BMI is around 50 and her weight is 400 pounds. This will increase her risk of heart attack, stroke, , pulmonary embolism especially since we can give her blood thinners and DVT prophylaxis at the moment, poor wound healing, etc. They seem to understand this discussion and seem agreeable with proceeding with this plan. She's gotten 2 units of packed red blood cells and is going to get 2 units of FFP, we will need to likely give her more packed red blood cells given the amou nt of bleeding she has exhibited during her ER course. We'll proceed emergently to surgery for attempted endoscopic control the bleeding, possible surgical control of the bleeding. 04/30/19: Pt has large cratered duodenal ulcer that was bleeding and was controlled yesterday endoscopically with clip, epi, and erbe. Seems to be doing well. Had a couple of BMs overnight but decreasing in volume and I think due to residual blood in her GI tract. H/H stable yesterday, CBC pending still this morning. Will start clear diet. Start carafate. Continue PPI gtt. Hold off on any blood thinners. Avoid NSAIDS. 05/01/19: Doing well. H/H stable. No further evidence of active GI bleeding. Will transfer to [facility] today. Change PPI to PO, 40mg bid. Continue carafate. Avoid NSAIDS. Hold off on blood thinners for now due to recent bleed. Start ADA diet. STop IV fluids. Follow H/H. Will ask for ECF eval as patient is weak and unstable from ambulatory standpoint and will benefit from further physical rehab for safety reasons. She will be ready to go to ECF as early as tomorrow or Sunday if H/H stable and no other evidence of GI bleeding. Will need to remove cordis catheter prior to d/c from [facility]. (2) Weakness Status: Acute Assessment & Plan: PT/OT. (3) Morbid obesity with BMI of 50.0-59.9, adult Status: Chronic Central Venous Access Medical Necessity for Access: IV Access Condition Stable. Time Spent: < 30 min Exam Sepsis Risk: No Definite Risk Problem Qualifiers (1) Gastrointestinal hemorrhage: GI bleed type/associated pathology: unspecified gastrointestinal hemorrhage type Qualified Codes: K92.2 - Gastrointestinal hemorrhage, unspecified VALERIE STARKEY MD May 01, 2019 07:30
[2019-05-01] MEDS ORDERED: CITALOPRAM HYDROBROM 20 MG TAB PO SCH (09:00)
[2019-05-01] MEDS ORDERED: PIOGLITAZONE HCL 15 MG TAB PO SCH (09:00)
[2019-05-01] MEDS ORDERED: PANTOPRAZOLE SOD 40 MG TABEC PO SCH (09:00)
[2019-05-01] MEDS: NYSTATIN 100,000 U/GM PWD 15GM TP SCH ×2 (09:07→20:45)
--- NOTE | 2019-05-01 10:00 | NUR ---
Physical Therapy Impression PT/OT co treat for patient safety with time split for billing purposes. Pt with improved tolerance to functional mobility today. Guy for supine to sit. Mod-maxAx2 for STS transfer from bed, Guy for pivot transfer to commode. ModAx2 for [place] [facility] [place] to ambulate 10' with close chair follow. Pt with good tolerance to mobility, VSS throughout on 10L O2. Pt required maxA to lift LEs into bed. Physical Therapy Goals 1. Pt to be min assist for supine to/from sit 2. Pt to be min assist for sit to/from stand 3. Pt to ambulate x 100' with least restrictive device 4. Pt to complete up/down stairs to access her home safely Patient's Goals
--- NOTE | 2019-05-01 11:08 | NUR ---
Occupational Therapy Impression Min Ax2 supine to sit with HOB raised. Mod Ax2 sit<>stand with RW. CGA stand pivot bed<>BSC with RW. CGAx2 sit<>stand from BSC. CGAx2 ambulation x10ft with RW, close chair follow. Mod Ax2 sit<>supine. SpO2 WNL via OxyMask throughout tx. Recommend further rehab prior to discharge home. Occupational Therapy Goals Patient's Goal
[2019-05-01] MEDS ORDERED: KCL/D1/2NS 20 MEQ 1000 ML 1,000 ML IV SCH (11:55)
[2019-05-01] MEDS ORDERED: NS(*) 0.9% 1000 ML BAG 2,000 ML ONE (13:16)
[2019-05-01] MEDS ORDERED: ROPIVACAINE 0.5% 20 ML VIAL ONE (13:22)
[2019-05-01] MEDS ORDERED: NOREPINE BITAR* 4 MG/4 ML AMP 4 MG in D5W(*) 250 ML BAG 246 ML IV PRN (13:25)
[2019-05-01] MEDS ORDERED: NS(*) 0.9% 500 ML BAG 500 ML ONE (13:37)
--- NOTE | 2019-05-01 13:56 | Miscellaneous Provider Note ---
Miscellaneous Provider Note Note Pt started showing signs of bleeding with massive hematemesis, melena and hypotension and so I have discussed this with her and her and I've recommended that we proceed directly with exploratory laparotomy with surgical control of the bleeding ulcer since I won't have adequate exposure of the bleeding ulcer endoscopically due to the blood in her stomach and it would delay definitive intervention. She's already hemodynamically unstable and so emergency surgery is the best solution for her. She is a high risk surgical patient due to her comorbidities, especially her BMI of 60 and she's at risk for blood clots and PEs since I can't anticoagulate her due to hemorrhage and she's also at risk for heart attack, stroke, pneumonia, respiratory failure, wound dehiscence due to her body habitus. She and her indicate their understanding of this discussion and their questions have been answered and they would like to proceed with this emergency surgery. VALERIE STARKEY MD May 01, 2019 13:56
[2019-05-01] MEDS ORDERED: MIDAZOLAM 1 MG/1 ML 10 ML ONE (14:17)
[2019-05-01] MEDS ORDERED: PIPERACILLIN/TAZO*3.375GM VIAL 3.375 GM in NS(*) 0.9% 100 ML MINI-BAG 100 ML IVPB ONE (14:20)
[2019-05-01] MEDS ORDERED: ETOMIDATE 20 MG/10 ML VIAL ONE (15:17)
[2019-05-01] MEDS ORDERED: ROCURONIUM BR 10 MG/ML ONE (15:17)
[2019-05-01] MEDS ORDERED: SUCCINYLCHOL CHL 100MG/5ML SYR IVP ONE (15:17)
[2019-05-01] MEDS ORDERED: [UNRECOGNIZED DRUG - OTHER] ONE (15:18)
[2019-05-01] MEDS: NS(*) 0.9% 500 ML BAG 500 ML IV PRN (15:19)
[2019-05-01 16:42] LABS: INR 1.49
[2019-05-01] MEDS ORDERED: SUGAMMADEX SOD 500 MG/5 ML SDV ONE (17:47)
--- NOTE | 2019-05-01 17:49 | Post Operative Progress Note ---
Post Operative Progress Note Date: May 01, 2019 Time: 17:32 Surgeon: Klaus Dictation number: [id number] Anesthesia: GETA by Dr. Maza Pre-Op Diagnosis: Actively bleeding duodenal ulcer, unstable patient Post-Op Diagnosis: HUGO Findings: C/W dx Procedure(s): Ex lap Adhesiolysis Gastroduodenotomy Suture ligation of bleeding duodenal ulcer Closure of gastoduodenotomy Specimen Removed:(May be N/A): None Complications: None Fluids: 1800mL crystalloid 4U pRBC 3U FFP Levophed gtt, 80mcg/hour and titrating down by end of surgery Estimated Blood Loss: 450mL from stomach 50mL from surgery Date OP Note Dictated: May 01, 2019 Time OP Note Dictated: 17:35 VALERIE STARKEY MD May 01, 2019 17:49
--- NOTE | 2019-05-01 18:59 | OPERATIVE REPORT 1 ---
EVENT DATE: May 01, 2019 SURGEON: Omar Enrique MD ANESTHESIOLOGIST: Carlos Maza MD ANESTHESIA: General endotracheal anesthesia. PREOPERATIVE DIAGNOSIS Actively bleeding duodenal ulcer in a hemodynamically unstable patient. POSTOPERATIVE DIAGNOSIS Actively bleeding duodenal ulcer in a hemodynamically unstable patient. PROCEDURE PERFORMED 1. Exploratory laparotomy. 2. Adhesiolysis. 3. Gastroduodenotomy. 4. Suture ligation of bleeding duodenal ulcer. 5. Closure of gastroduodenotomy. COMPLICATIONS None. INTRAVENOUS FLUIDS Crystalloid 1.8 L, four units of packed red blood cells, three units of FFP. ESTIMATED BLOOD LOSS 450 mL evacuated from the stomach and 50 mL from the surgery itself. CONDITION Critical. INDICATIONS This is a 68-year-old female whom I admitted two days ago with a bleeding duodenal ulcer, and I took her immediately for EGD and identified the ulcer. I controlled the bleeding with an Endo Clip, argon laser, and epinephrine injection. She has been stable since up until about noon when she started exhibiting hematemesis and melena. Her hemoglobin had been stable around 12 for the last 48 hours since the EGD, and she had any bowel movement since yesterday, but now with the active hematemesis and melena and also with her blood pressure down in the 50s systolic, I discussed with her and her emergency surgery to get control of the bleeding, and they both agreed with this. DESCRIPTION OF PROCEDURE Patient was brought to the operating room and placed supine on the operating table. General endotracheal anesthesia was administered, and her abdomen was prepped and draped in a sterile fashion. A timeout was completed, and I made a vertical midline incision from just below the xiphoid to the umbilicus and dissected through the dermis and subcutaneous fat all the way down to the midline fascia. I then incised the fascia along the entire length of the skin as well as the peritoneum along the entire length of the fascial incision and the skin incision. I then set up the Bookwalter self-retaining retractor system and then identified the stomach and duodenum. The duodenum was adhesed to the liver since she has had a previous cholecystectomy. I had to take adhesions down of both omentum from the liver edge and also had to do careful dissection of the duodenum from the undersurface of the liver in order to gain adequate exposure in the area of the ulcer in the duodenal bulb. After this was completed, I made a longitudinal gastroduodenotomy across the pylorus and then identified the ulcer. There was active arterial bleeding. I then placed 2-0 silk suture ligatures in a box fashion with four separate sutures all the way around, and then there was still some oozing around the ulcer edge, so I placed another 2-0 silk running suture and just sutured the edge of the ulcer. I irrigated and dried this area, and when I was done, it was completely hemostatic. I also confirmed the position of the nasogastric tube in the stomach. I then closed the gastroduodenotomy in a transverse fashion with running 2-0 Monocryl full-thickness sutures and then oversewed the staple line with interrupted 0 silk Lembert-type sutures. It looked good without any tension, no bleeding, and looked like a good closure. I then placed a 10 mm flat Jamie-Tejada drain over the anterior surface of the duodenum under the surface of the liver and exiting in the right mid abdomen. I sewed this to the skin with a 2-0 silk suture. I then closed the peritoneum in the midline with a running 3-0 Vicryl suture and closed the fascia with 0 looped PDS sutures. I irrigated and dried the wound and then closed the skin with skin adam. I did irrigate the right upper quadrant with 2 L of warm saline as well and made sure I suctioned all of this out. Once the skin was closed, I placed a Prevena VAC dressing over the incision and then put it to the pump. It had a good seal. I then placed drain sponges around the drain, which were taped into place. She was then brought to the ICU intubated, but her vitals had become much more stable. Dr. Maza had her on a Levophed drip, but he was titrating it down as we were taking her to the ICU. She remained in critical condition. [facility] CENTERMina
--- NOTE | 2019-05-01 19:32 | Hospitalist Consultation ---
History of Present Illness Requesting Physician Dr. Enrique Reason for Consult Ventilator management History of Present Illness This patient was admitted for GI bleed. She had emergent endoscopy on 04/29 and was found to have an ulcer. She was doing well, but developed hematemesis today, and required emergent laparotomy. She returned to the ICU on mechanical ventilation and pressors. History Problems: (1) DMII (diabetes mellitus, type 2) (2) Morbid obesity with BMI of 60.0-69.9, adult Home Meds Reported Medications Lutein (LUTEIN) 10 Mg Tablet, 1 TAB PO QHS 04/30/19 Citalopram Hydrobromide (CITALOPRAM HBR) 20 Mg Tablet, 20 MG PO QDAY, #5 TAB 04/21/19 Pioglitazone Hcl (PIOGLITAZONE HCL) 45 Mg Tablet, 45 MG PO QDAY 04/21/19 Discontinued Reported Medications Sulfamethoxazole/Trimethoprim (SULFAMETHOXAZOLE-TMP DS TABLET) 1 Each Tablet, 1 TAB PO BID Started 04/22/19 04/29/19 Discontinued Scripts Fluconazole (DIFLUCAN) 100 Mg Tablet, 200 MG PO QDAY, #2 TAB 0 Refills Prov:JOSE ROCHE SILVER WRAPPER-BC 04/22/19 Allergies: Coded Allergies: Tetanus Vaccines and Toxoid (Verified Allergy, Unknown, SWELLED UP, 04/29/19) Hx Smoking: No Smoking Status: Former Smoker Exposure to Second Hand Smoke?: No Hx Alcohol Use: No Hx Substance Use Disorder: No Review of Systems All Systems Reviewed/Normal: Yes Exam Vital Signs Vital Signs Date Time Temp Pulse Resp B/P (MAP) Pulse Ox O2 Delivery O2 Flow Rate FiO2 05/01/19 18:52 50.0 05/01/19 13:30 92 5 46/21 (29) 96 Oxy Mask 10.0 05/01/19 08:00 99.0 Neuro: Other (Sedated) Cardiovascular: Regular Rate and Rhythm Respiratory: Other (Bilateral breath sounds present.) Extremities: Edema Medical Decision Making Data Points Result Diagram: 05/01/1944105/01/19441 Assessment and Plan Problems: (1) Acute respiratory failure Assessment & Plan: She returned from surgery intubated on 05/01. She is on SIMV with no overbreathing of the ventilator. A post intubation ABG shows mild hypercapnia. Her chest x-ray shows good tube placement. She is receiving propofol for sedation. We will begin weaning parameters in the morning. (2) Hypotension Status: Acute Assessment & Plan: She is on a norepinephrine infusion. (3) Anemia due to GI blood loss Assessment & Plan: She received one unit of red cells on 04/29. A post operative CBC is ordered. (4) DMII (diabetes mellitus, type 2) Assessment & Plan: She is on sliding scale level #2. (5) Morbid obesity with BMI of 60.0-69.9, adult Central Venous Access Medical Necessity for Access: IV Access Venous Thromboembolism Antithrombotics Is Pt On Any Antithrombotics?: No Exam Sepsis Risk: No Definite Risk Problem Qualifiers (1) Hypotension: Hypotension type: unspecified hypotension type Qualified Codes: I95.9 - Hypotension, unspecified VALERIE AZAR DO May 01, 2019 19:32
[2019-05-01] MEDS: PROPOFOL(*)1000 MG/100 ML VIAL 100 ML IV PRN ×2 (19:34→21:46)
[2019-05-01 19:45] LABS: PLATELET COUNT, AUTOMATED 107 K/uL (150-450)
[2019-05-01] MEDS ORDERED: MAGNESIUM SUL* 2 GM/50 ML IVPB 50 ML IVPB ONE (19:55)
--- NOTE | 2019-05-01 20:03 | RADIOLOGY IMAGING REPORT ---
FACILITY: PATIENT NAME: Tennille Zaragoza : 1950 MR: [id number] V: [id number] EXAM DATE: ORDERING PHYSICIAN: VALERIE AZAR TECHNOLOGIST: Location: [facility] Patient: Tennille Zaragoza : 1950 Visit/Account:[id number] Date of Sevice: 05/01/2019 CHEST SINGLE AP INDICATION: Intubated and Vent COMPARISON: 04/29/2019 FINDINGS: The patient has been intubated with the endotracheal tube terminating 3.3 cm above the smiley. There is a nasogastric tube present within the stomach. There is a large amount of intra-abdominal air or p ossibly distended stomach. Midline staple line is noted. There is increasing consolidation at the left lung base with probable small bilateral pleural effusio ns. Increased pulmonary vascular congestion is present with borderline edema pattern. IMPRESSION: 1. Appropriate placement of endotracheal tube and nasogastric tube 2. Worsening left lower lobe consolidation with small bilateral pleural effusions 3. Borderline CHF 4. Large amount of intra-abdominal gas versus distended stomach from recent surgery Results were discussed with VALERIE AZAR at 05/01/2019 7:30 PM. Report Dictated By: Rufus Young at 05/01/2019 7:31 PM Report E-Signed By: Rufus Young at 05/01/2019 7:55 PM WSN:[id number]
[2019-05-01] MEDS: LR(*) 1000 ML BAG 1,000 ML IV PRN (20:24)
[2019-05-01] MEDS: ORAL SUCTION/CHLORHX/SWAB KIT MT SCH (20:45)
[2019-05-01] MEDS ORDERED: BETA-CAROTENE(A) & E/MIN TAB PO SCH (21:00)
[2019-05-02] VITALS (92 sets, daily range): BP systolic 105–143; BP diastolic 37–77
[2019-05-02] MEDS: PROPOFOL(*)1000 MG/100 ML VIAL 100 ML IV PRN ×7 (00:26→23:30)
[2019-05-02] MEDS: PANTOPRAZOLE SOD(*)40 MG VIAL 80 MG in NS(*) 0.9% 100 ML BAG 100 ML IV SCH ×3 (03:47→23:29)
[2019-05-02] MEDS: LR(*) 1000 ML BAG 1,000 ML IV PRN ×3 (04:43→22:39)
[2019-05-02 05:31] LABS: PLATELET COUNT, AUTOMATED 106 K/uL (150-450)
--- NOTE | 2019-05-02 06:06 | RADIOLOGY IMAGING REPORT ---
FACILITY: [facility] PATIENT NAME: Tennille Zaragoza : 1950 MR: [id number] V: [id number] EXAM DATE: ORDERING PHYSICIAN: VALERIE AZAR TECHNOLOGIST: Location: [facility] Patient: Tennille Zaragoza : 1950 Visit/Account:[id number] Date of Sevice: 05/02/2019 Portable chest: Indication: Respiratory insufficiency. Technique: A single frontal film was obtained. Comparison: 05/01/2019 Lines and tubes: Remain in satisfactory position. Skeletal and soft tissue structures: Stable. Heart and mediastinum: Stable. Lung epps: There is persistent parenchymal consolidation and volume loss in the left lower lobe. Th ere is persistent mild right basilar opacity. Pleural spaces: A moderate left effusion is present. There is a small right effusion. No evidence of pneumothorax. Impression: No acute changes. Report Dictated By: Trevon Banerjee MD at 05/02/2019 5:56 AM Report E-Signed By: Trevon Banerjee MD at 05/02/2019 5:58 AM WSN:[id number]
--- NOTE | 2019-05-02 07:22 | General Surgery Progress Note ---
Subjective Progress Notes Subjective Intubated/sedated Physical Exam Vital Signs Date Time Temp Pulse Resp B/P (MAP) Pulse Ox O2 Delivery O2 Flow Rate FiO2 05/02/19 06:21 60.0 05/02/19 05:44 70 05/02/19 05:30 99.4 16 126/44 (71) 90 Mechanical Ventilator 05/01/19 13:30 10.0 Intake and Output 05/02/19 07:04 Intake Total 2873 ml Output Total 1520 ml Balance 1353 ml Intake Oral 100 ml IV Total 2773 ml Output Urine Total 1170 ml Emesis 300 ml Drainage Total 50 ml # Bowel Movements 2 # Emeses 1 General Appearance: Other (Intubated/sedated) GI: Other (Prevena vac dressing is in place with good seal. CACHORRO with small amount of serous drainage) Result Diagram: 05/02/1944405/02/19444 Assessment and Plan Problems: (1) Gastrointestinal hemorrhage Status: Acute Assessment & Plan: 04/29/19: This patient is actively bleeding. We'll take her emergently for EGD and colonoscopy to try to localize the source of the bleeding and try to control it if possible endoscopically. I've also consented her for emergency exploratory laparotomy if I'm unable to control the bleeding endoscopically and there is active bleeding found on endoscopy. I have explained the procedures to her in great detail as well as the degree of uncertainty now in terms of where the bleeding is coming from. I have explained that I may have to perform a colon resection and may even need to give her a colostomy. I have explained the procedures, risks, alternatives, and expected recovery as far as I can tell with the limited information I have at the moment to both her and her . Her risks are significantly increased by her degree of obesity, her BMI is around 50 and her weight is 400 pounds. This will increase her risk of heart attack, stroke, , pulmonary embolism especially since we can give her blood thinners and DVT prophylaxis at the moment, poor wound healing, etc. They seem to understand this discussion and seem agreeable with proceeding with this plan. She's gotten 2 units of packed red blood cells and is going to get 2 units of FFP, we will need to likely give her more packed red blood cells given the amount of bleeding she has exhibited during her ER course. We'll proceed emergently to surgery for attempted endoscopic control the bleeding, possible surgical control of the bleeding. 04/30/19: Pt has large cratered duodenal ulcer that was bleeding and was controlled yesterday endoscopically with clip, epi, and erbe. Seems to be doing well. Had a couple of BMs overnight but decreasing in volume and I think due to residual blood in her GI tract. H/H stable yesterday, CBC pending still this morning. Will start clear diet. Start carafate. Continue PPI gtt. Hold off on any blood thinners. Avoid NSAIDS. 05/01/19: Doing well. H/H stable. No further evidence of active GI bleeding. Will transfer to [facility] today. Change PPI to PO, 40mg bid. Continue carafate. Avoid NSAIDS. Hold off on blood thinners for now due to recent bleed. Start ADA diet. STop IV fluids. Follow H/H. Will ask for ECF eval as patient is weak and unstable from ambulatory standpoint and will benefit from further physical rehab for safety reasons. She will be ready to go to ECF as early as tomorrow or Sunday if H/H stable and no other evidence of GI bleeding. Will need to remove cordis catheter prior to d/c from [facility]. 05/02/19: POD#1 s/p ex lap with gastroduodenotomy and GDA suture ligation. Stable overnight. Levophed is down to 3mcg/min and RESIDENT CAREGIVER is actively titrating this down, hopefully will be off in a few hours. Pt is not ready to extubate. Had to go up to 60% fiO2 overnight and increased PEEP to 10. Will continue mechanical ventilation/sedation but will provide daily sedation vacation and weaning trials in hopes of preventing vent dependance. Will start TPN today. Continue PPI gtt. Hold off on anticoagulation. H/H stable overnight. Will follow H/H. Renal function looks good with normal creatinine and good UOP. (2) Weakness Status: Acute Assessment & Plan: PT/OT. (3) Morbid obesity with BMI of 50.0-59.9, adult Status: Chronic Central Venous Access Medical Necessity for Access: IV Access Condition STable. Time Spent: < 30 min Exam Sepsis Risk: No Definite Risk Problem Qualifiers (1) Gastrointestinal hemorrhage: GI bleed type/associated pathology: unspecified gastrointestinal hemorrhage type Qualified Codes: K92.2 - Gastrointestinal hemorrhage, unspecified VALERIE STARKEY MD May 02, 2019 07:22
--- NOTE | 2019-05-02 07:51 | Hospitalist Progress Note ---
Subjective Progress Notes Subjective Intubated and sedated. Physical Exam Vital Signs Date Time Temp Pulse Resp B/P (MAP) Pulse Ox O2 Delivery O2 Flow Rate FiO2 05/02/19 06:21 60.0 05/02/19 05:44 70 05/02/19 05:30 99.4 16 126/44 (71) 90 Mechanical Ventilator 05/01/19 13:30 10.0 Intake and Output 05/02/19 07:04 Intake Total 2873 ml Output Total 1520 ml Balance 1353 ml Intake Oral 100 ml IV Total 2773 ml Output Urine Total 1170 ml Emesis 300 ml Drainage Total 50 ml # Bowel Movements 2 # Emeses 1 General Appearance: Other (sedated on ventilator) Cardiovascular: Regular Rate and Rhythm (distant tones) Respiratory: Other (diminished throughout) GI: Other (obese) Extremities: Warm, Perfused, Other (SCDs in place) Result Diagram: 05/02/1944405/02/19444 Assessment and Plan Problems: (1) Acute respiratory failure Status: Acute Assessment & Plan: She returned from surgery intubated on 05/01. She is on SIMV and is currently not overbreathing the ventilator. ABG this AM shows mild hypercapnia and hypoxia. Her chest x-ray shows possible right basilar infiltrate and bilateral pleural effusions. She does not have fever and WBC count is normal. She is receiving propofol for sedation. It does not appear she is at the point to extubate this AM. (2) Hypotension Status: Acute Assessment & Plan: BPs are improved. Most likely due to acute blood loss. She has been transfused 8units PRBC. Will need to watch Hgb/Hct. Transfuse if needed. She is on a norepinephrine infusion. Will try to wean down/off. (3) Anemia due to GI blood loss Assessment & Plan: She has received 8 units PRBCs thus far. Watch labs. (4) DMII (diabetes mellitus, type 2) Assessment & Plan: Monitor glucoses q6hrs. She is on sliding scale level #2. (5) Morbid obesity with BMI of 60.0-69.9, adult Central Venous Access Medical Necessity for Access: IV Access Exam Sepsis Risk: No Definite Risk Problem Qualifiers (1) Hypotension: Hypotension type: unspecified hypotension type Qualified Codes: I95.9 - Hypotension, unspecified IRIS ANNA MD May 02, 2019 07:51
[2019-05-02] MEDS: NYSTATIN 100,000 U/GM PWD 15GM TP SCH ×2 (09:22→21:26)
[2019-05-02] MEDS: ORAL SUCTION/CHLORHX/SWAB KIT MT SCH ×2 (09:24→21:26)
[2019-05-02] MEDS: CEFEPIME HCL IVP SCH ×2 (12:16→23:30)
[2019-05-02] MEDS: WATER STERILE IVP SCH ×2 (12:16→23:30)
[2019-05-02] MEDS ORDERED: PANTOPRAZOLE SOD(*)40 MG VIAL 80 MG in NS(*) 0.9% 100 ML BAG 100 ML IV SCH (13:30)
--- NOTE | 2019-05-02 14:40 | Medical Nutrition Therapy ---
Nutrition Anthropometrics Height (Inches): 67.00 Height (Calculated Centimeters: 170.333250 Weight (Pounds): 384 Weight (Calculated Kilograms): 174.179 BMI: 60.1 Gerry Nutrition Score: Probably Inadequate Gerry Nutrition Risk Score: 11 Dietary Referral Nutrition Risk Factors: Nutrition Risk Comment: Physical Findings Physical Appearance: Morbidly Obese 40+ Skin Appearance Skin Appearance: Edema Edema Location Modifier: Both Edema Location: Foot Type of Edema: Degree of Edema: 2+ Gastrointestinal Symptoms GI Symtoms: Blood in Stool Tube Present: NG Bowel Sounds: Recent Bowel Pattern: Stool Characteristics: Nutritional Diagnosis Past Medical History: DM2, GERD Nutritional Acuity: 1-High Nutrition Diagnosis: Altered GI Function Nutrition Etiology: Physiological Causes Nutrition Problem/Etiology/Sym: GI bleed Energy Requirement: 2720 (20 kcal/kg) Fluid Requirement: 2720 Nutrition Intervention: Obtain Height and Weight Nutritional Support Current Enteral / Parental: TPN Rate: 42mL/hr Recommended Enteral / Parental: TPN Recommended Rate: 72 Recommended Goal Rate: 72 Recommended Duration: 24 Recommended Calories: 1521 Recommended Protein: 86 Total Recommended Calories: 2199 Nutrition Monitoring & Eval RD Patient Assessment Time: [address] Assessment Type: Nutrition Support Consult Patient Nutrition Acuity: 1-High Follow Up Date: May 05, 2019 Nutritional Comment: 04/29: Pt admit for GI bleed, exploratory lap. Pertinent PMH includes DM2, diverticulosis. Will monitor surgery outcome, BGs, intake, and bowel function and make recommendations depending on surgery outcome.ELIZABETH 05/02: Pt intubated/sedated. Currently recieving propofol at 25.7mL/hr provides 678 kcal. Recommend running TPN at goal rate of 72mL/hr without lipids, due to propofol providing 62g of lipid. TPN + propofol will provide 2199 kcal, 86g Protein, and 346g CHO. Current estimated needs using the modified [place] State equation. State Equation Goal rate will meet 99% of estimated energy needs and 93% of estimated protein needs. Will continue to monitor tolerance and make changes as needed.ELIZABETH Copies To Copies to: VALERIE STARKEY MD ; RACQUEL OSORIO May 02, 2019 14:40
[2019-05-02] MEDS ORDERED: FAT EMULSION 20% 250 ML BAG 250 ML IVPB SCH (16:00)
[2019-05-02] MEDS ORDERED: INSULIN HUM REG 100 UN/ML 3 ML 10 UNIT, MULTIVITAMINS(*) 10 ML VIAL 10 ML, TRACE METALS... IV ONE (16:00)
[2019-05-02] MEDS: NS(*) 0.9% 500 ML BAG 500 ML IV PRN (23:29)
[2019-05-03] MEDS ORDERED: 1: INSULIN HUM REG 100 UN/ML 3 ML 10 UNIT, MULTIVITAMINS(*) 10 ML VIAL 10 ML, TRACE META IV SCH (16:00)
== END 2019-05-03 00:01 | disposition still patient (30) | DRG 951 ==
LOC: ER 05:16 → ICU 07:58
PROVIDERS: ADMIT Surgery; ATTEND Surgery
DX: Z02.9 Encounter for administrative examinations, unspecified (principal)
CPT/HCPCS: 36416; 36600; 71045; 81001; 82040; 82150; 82247; 82310; 82374; 82435; 82565; 82803; 82947; 82948; 83605; 83690; 83735; 83880; 84075; 84132; 84155; 84295; 84450; 84460; 84484; 84520; 85014; 85018; 85025; 85027; 85610; 85730; 86677; 86850; 86900; 86901; 86920; 87088; 94002; 94640; 94667; 94770; 97161; 97166; A4216; C1758; C9113; J0171; J0330; J0692; J1100; J1815; J2250; J2370; J2704; J2795; J3475; J3480; J3490; J7030; J7040; J7050; J7060; J7120; P9016; P9059

== ENCOUNTER → 2019-04-29 | Outpatient (CLI) | payer MEDICARE | LOC: AMB 04:24 | PROVIDERS: ATTEND Nurse Practitioner | DX: N93.9 Abnormal uterine and vaginal bleeding, unspecified (principal) | CPT/HCPCS: A0425; A0427 ==